=== PATIENT | male | born 2000 | race Two or more races ===

== ENCOUNTER 2025-05-27 13:09 | Emergency (ER) | payer OTHER ==
[~2025-05-27] VITALS: Ht 180.3 cm; Wt 136.0 kg
[2025-05-27 14:25] VITALS: BP 158/87; PULSE 88; RESP 14; TEMP 98.9; O2SAT 100
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
[2025-05-27] MEDS: KETOROLAC TROMETH 60MG/2ML VIAL IM ONE (15:46)
[2025-05-27 16:57] LABS: Urine Protein, UAD 1+ (Negative)
[2025-05-27] MEDS ORDERED: NITR-87 PO (17:15)
[2025-05-27] MEDS ORDERED: METH-1181 PO (17:15)
[2025-05-27] MEDS ORDERED: IBUP-1455 PO (17:15)
== END 2025-05-27 18:23 | disposition left against medical advice (07) ==
LOC: ER 13:09 → EDBD 13:09 → ER 18:23
DX: N39.0 Urinary tract infection, site not specified (principal); M54.9 Dorsalgia, unspecified; V43.52XA Car driver injured in collision with other type car in traffic accident, initial encounter; Y93.89 Activity, other specified; Y92.410 Unspecified street and highway as the place of occurrence of the external cause; Y99.8 Other external cause status
CPT/HCPCS: 72070; 72100; 81001; 96372; 99284; J1885